=== PATIENT | male | born 1990 | race Caucasian/White ===

== ENCOUNTER → 2022-08-05 | Outpatient (CLI) | payer BC, SELFPAY ==
[2022-08-05 10:03] LABS: Absolute Lymphocyte Count 1.34 X10^3/uL (0.83-4.51); Absolute Neutrophil Count 3.8 X10^3/uL (2.0-7.7); Basophil# 0.03 X10^3/uL; Basophil% 0.5 % (0-1); Eosinophil# 0.27 X10^3/uL; Eosinophils% 4.6 % (0-5); Hematocrit 40.9 % (40-54); Hemoglobin 13.2 g/dL (13.0-16.5); Lymphocyte # 1.34 X10^3/ul (0.83-4.51); Lymphocyte % 22.8 % (19-41); Mean Corp Hgb Conc 32.3 g/dL (32-36); Mean Corpuscular Hgb 29.5 pg (27.0-32.0); Mean Corpuscular Volume 91.5 fL (80-94); Monocyte# 0.46 X10^3/uL; Monocyte% 7.8 % (0-10); NRBC Flagged by Analyzer 0 % (0-5); Neutrophil # 3.75 X10^3/uL (2.7-7.7); Platelet Count 264 K/mm3 (150-450); RBC Distribution Width CV 12.7 % (11.6-14.6); Red Blood Count 4.47 M/mm3 (4.6-6.2); White Blood Count 5.9 K/mm3 (4.4-11.0)
[2022-08-05 10:55] LABS: ALB/GLOB Ratio 0.9 RATIO (0.9-2.4); AST(SGOT) 24 U/L (15-37); Alanine Aminotransfer ALT/SGPT 42 U/L (16-61); Albumin, Serum 3.4 g/dL (3.2-5.0); Alkaline Phosphatase 98 U/L (45-117); Anion Gap 5 (5-15); BUN 12 mg/dL (7-18); BUN/Creat Ratio 14.4 RATIO (10-20); Chloride 108 mmol/L (98-107); Cholesterol 152 mg/dL (200); Creatinine, Serum 0.83 mg/dL (0.70-1.30); EST Glomerular Filtration Rate 113 mL/min (>60); Est Glom Filt Rate - Afr Amer 137 mL/min (>60); Globulin 3.8 g/dL (2.2-4.2); Glucose 91 mg/dL (74-106); High Density Lipoprotein 46 mg/dL; Potassium 4.1 mmol/L (3.5-5.1); Protein, Total 7.2 g/dL (6.4-8.2); Sodium Level 140 mmol/L (136-145); Thyroid Stim Hormone (TSH) 1.91 uIU/mL (0.358-3.74); Triglycerides 71 mg/dL; Very Low Density Lipoprotein 14 mg/dL (5-40)
== END | disposition home or self-care (01) ==
LOC: MFPLAB 08:10
PROVIDERS: PCP Family Medicine; Referring Provider Family Medicine; Visit Provider Family Medicine
DX: Z13.0 Encounter for screening for diseases of the blood and blood-forming organs and certain disorders involving the immune mechanism (principal); Z13.29 Encounter for screening for other suspected endocrine disorder; Z13.220 Encounter for screening for lipoid disorders
CPT/HCPCS: 36415; 80053; 80061; 83036; 84443; 85025

== ENCOUNTER 2023-01-12 15:35 | Emergency (ER) | payer BC, SELFPAY ==
[2023-01-12 15:35] VITALS: BP 158/111; PULSE 102; RESP 18; TEMP 36.8; O2SAT 99; BMI 54.8
--- NOTE | 2023-01-12 15:50 | ED.VIS.LOWEX ---
HPI History of Present Illness Chief Complaint: Lower Extremity Injury Detail of Chief Complaint: Left knee injury Informant: patient Narrative Narrative: Presents to the emergency department with injury to his left knee that occurred about 2 weeks ago. Patient states that he was walking down some steps in his real when his foot slipped and shifted his knee. He continued to walk and was able to get by. He is concerned because its been 2 weeks and he continues to have pain. Most the pain he points to his to the anterior proximal tibia area. At rest he really does not have much pain certain movements cause him pain. He denies chest pain or shortness of breath. Patient has not seen anybody for this. PFSH PFS Home Medications naproxen 500 mg tablet 500 mg PO BID #14 tabs 01/12/23 [Rx Last Taken Unknown] Allergy/AdvReac Type Severity Reaction Status Date / Time No Known Allergies Allergy Verified 01/12/23 15:40 Social History Smoking Status: Never smoker ROS ROS ED Review of Systems ROS Unobtainable: other Constitutional Constitutional ED: Reports lethargy; Denies chills, fever(s), sweats or weight loss Eyes Eyes: Denies blurry vision, change in vision or diplopia ENT ENT ED: Denies rhinorrhea or sore throat Cardiovascular Cardiovascular: Denies chest pain, orthopnea or racing heartbeat Respiratory/Chest Respiratory/Chest: Denies cough, dyspnea, dyspnea on exertion, orthopnea or sputum Gastrointestinal Gastrointestinal: Denies abdominal pain, diarrhea, nausea or vomiting Genitourinary Genitourinary ED: Denies dysuria, hematuria or urinary frequency Musculoskeletal Musculoskeletal: Reports other Details: Left knee pain ; Denies arthralgias, back pain, myalgias or neck pain Integumentary Denies abscess, Abrasions or rash Neurologic Neurologic: Denies headache(s) or weakness Psychiatric Psychiatric: Denies anxiety, depression or suicidal thoughts Endocrine Endocrinology: Denies polydipsia, polyphagia or polyuria Hematologic/Lymphatic Hematologic/Lymphatic: Denies easy bleeding, easy bruising or lymphadenopathy Allergic/Immunologic Allergic/Immunologic ED: Denies mouth swelling, tongue swelling or urticaria EXAM Physical Exam Const Vital Signs: 01/12/23 15:35 Temperature 98.2 F Temperature Source Temporal Pulse Rate 102 H Respiratory Rate 18 Blood Pressure 158/111 H Blood Pressure Mean 126 Pulse Ox 99 Oxygen Delivery Method Room Air Positive well nourished and well developed General Appearance ED: well developed and NAD HEENT Reports TM's clear and moist mucous membranes normocephalic and atraumatic; Negative for trauma or tenderness Tympanic Membrane ED: Yes TM's clear Eyes PERRL and EOMs intact bilaterally General Eye ED: Negative for pale conjunctiva or scleral icterus Neck no lymphadenopathy, supple and no JVD General: Negative for tenderness Chest Wall inspection of chest normal and palpation of chest normal Chest: Negative for tenderness Resp normal respiratory effort and clear to auscultation bilaterally Effort and Inspection: Negative for respiratory distress or pain with movement Auscultation: Negative for rhonchi, wheezes or diminished lung sounds Cardio regular rate, regular rhythm, S1 normal heart sound, S2 normal heart sound and no murmurs Peripheral Pulses: pulses 2+ throughout GI normal to inspection, nondistended, normoactive bowel sounds, soft to palpation, non-tender, non-distended and no masses Back/Spine no CVA tenderness and no thoracic nor lumbar tenderness Extremity normal to inspection Extremity Narrative: Left knee-no obvious effusion noted. Ligamentous exam very difficult given patient's large size and large body habitus however no obvious laxity noted with anterior or posterior drawer test. There is no laxity noted with varus or valgus stress. Is able to flex and extend the knee without difficulty. He is neurovascular intact distally. No varicosities noted. No ropes or cords palpated. Negative Homans' sign. General Extremety ED: Negative for edema General Extremity: Negative for edema Neuro oriented x3, CN's II-XII intact bilaterally, no sensory deficits noted and gait normal Sensorium / Orientation: awake, alert, oriented to person, oriented to place and oriented to time Motor Exam: strength 5/5 throughout and strength abnormal Psych mental status grossly normal Skin no rashes or lesions noted and no wounds MDM MDM MDM Narrative Medical decision making narrative: Radiology requested repeat lateral view which will be performed. Patient will then be discharged to home. Patient presents with left knee pain x2 weeks after injury. There is no evidence of ligamentous laxity on physical exam and x-rays unremarkable for fracture on my interpretation. Patient understands I cannot rule out ligamentous or meniscal injury and he will be referred to orthopedics for follow-up if symptoms persist and he understands he may need further imaging such as possibly MRI to evaluate further. We will give him an Stanley wrap as we do not have a knee immobilizer that will fit the patient. He does not want crutches. Radiography Diagnostic Testing: Clinical Impression(s) from Imaging Studies Knee X-Ray 01/12/23 16:00 IMPRESSION: Limited lateral view due to patient motion. Repeat image recommended (also, remove keys from pocket). Electronically Signed: Laurie Fields MD at 16:36 EST Reading Location ID and State: [id number] / Tel , Service support , 4 view x-rays of the left knee obtained interpreted by myself as no acute fractures or dislocations. I do not appreciate an obvious effusion. Official report from radiology will be pending. X-ray interpretation was performed by radiology and they noted there was motion artifact on the lateral view and with they would like to have it repeated and have the patient's keys removed from his pocket. Discharge Plan Triage Chief Complaint: Lower Extremity Injury ED Provider: Zulma Brandon Dx/Rx/DC Orders Clinical Impression: Left knee sprain Instructions: ED Knee Sprain Prescriptions: New naproxen 500 mg tablet 500 mg PO BID Qty: 14 0RF Primary Care Provider: Alma Martinez Referrals: Alma Martinez DO [Primary Care Provider] - Miah Guy MD [Med Staff - Active Staff] - 3-5 Days Disposition Disposition: Home, Self Care
--- NOTE | 2023-01-12 16:00 | RAD_ITS ---
INDICATION: injury EXAMINATION/TECHNIQUE: X-RAY - LEFT XR Knee Complete 4 Views or More 4 VIEWS COMPARISON: None. FINDINGS: Limited due to motion artifact on the lateral view. No acute fracture or dislocation. Joint effusion. Normal alignment. Soft tissues are unremarkable. No soft tissue gas. [place] projected over the anterolateral thigh. RAD/Knee 4 or More Views IMPRESSION: Limited lateral view due to patient motion. Repeat image recommended (also, remove keys from pocket). Electronically Signed: Laurie Fields MD at 16:36 EST Reading Location ID and State: [id number] / Tel , Service support ,
--- NOTE | 2023-01-12 16:42 | RAD_ITS ---
INDICATION: lateral view repeat EXAMINATION/TECHNIQUE: X-RAY - LEFT XR Knee 1 or 2 Views 1 VIEWS COMPARISON: None. FINDINGS: No acute fracture or dislocation. No destructive bone changes. Joint spaces are well-maintained. No joint effusion. Normal alignment. Soft tissues are unremarkable. No radiopaque foreign body or soft tissue gas. RAD/Knee 1 or 2 Views IMPRESSION: Negative lateral view of the knee. Electronically Signed: Laurie Fields MD at 17:37 EST Reading Location ID and State: [id number] / Tel , Service support ,
--- NOTE | 2023-01-12 16:45 | ED.RN ---
PER Ed SMITH RN OKAY TO DISCHARGE PT AFTER XRAY TAKEN PER DR. MCMAHON PRIOR TO RESULT.
[2023-01-12 16:51] VITALS: RESP 18
== END 2023-01-12 16:52 | disposition home or self-care (01) ==
PROVIDERS: Emergency Provider Emergency Medicine; PCP Family Medicine; Visit Provider Emergency Medicine
DX: S83.92XA Sprain of unspecified site of left knee, initial encounter (principal); X58.XXXA Exposure to other specified factors, initial encounter
CPT/HCPCS: 73560; 73564; 99282

== ENCOUNTER → 2023-09-20 | Outpatient (CLI) | payer BC, SELFPAY ==
[2023-09-20 17:47] LABS: Absolute Lymphocyte Count 1.93 X10^3/uL (0.83-4.51); Absolute Neutrophil Count 5.8 X10^3/uL (2.0-7.7); Basophil# 0.06 X10^3/uL; Basophil% 0.7 % (0-1); Eosinophil# 0.28 X10^3/uL; Eosinophils% 3.2 % (0-5); Hematocrit 42.4 % (40-54); Hemoglobin 13.5 g/dL (13.0-16.5); Lymphocyte # 1.93 X10^3/ul (0.83-4.51); Lymphocyte % 22.1 % (19-41); Mean Corp Hgb Conc 31.8 g/dL (32-36); Mean Corpuscular Hgb 28.8 pg (27.0-32.0); Mean Corpuscular Volume 90.6 fL (80-94); Mean Platelet Vol. 10.9 fl (6.2-12.0); Monocyte# 0.61 X10^3/uL; NRBC Flagged by Analyzer 0 % (0-5); Neutrophil # 5.83 X10^3/uL (2.7-7.7); Neutrophil % 66.8 % (47-70); Platelet Count 324 K/mm3 (150-450); RBC Distribution Width CV 13.2 % (11.6-14.6); RBC Distribution Width SD 43.2 fl (35.1-43.9); Red Blood Count 4.68 M/mm3 (4.6-6.2); White Blood Count 8.7 K/mm3 (4.4-11.0)
[2023-09-20 18:17] LABS: ALB/GLOB Ratio 0.9 RATIO (0.9-2.4); AST(SGOT) 29 U/L (15-37); Alanine Aminotransfer ALT/SGPT 58 U/L (16-61); Albumin, Serum 3.7 g/dL (3.2-5.0); Alkaline Phosphatase 96 U/L (45-117); Anion Gap 6 (5-15); BUN 16 mg/dL (7-18); BUN/Creat Ratio 17.7 RATIO (10-20); Calcium,Total 9.4 mg/dL (8.5-10.1); Chloride 102 mmol/L (98-107); Cholesterol 172 mg/dL (200); EST Glomerular Filtration Rate 102 mL/min (>60); Est Glom Filt Rate - Afr Amer 123 mL/min (>60); Globulin 4.3 g/dL (2.2-4.2); Glucose 119 mg/dL (74-106); High Density Lipoprotein 46 mg/dL; Potassium 3.4 mmol/L (3.5-5.1); Sodium Level 136 mmol/L (136-145); Triglycerides 161 mg/dL; Very Low Density Lipoprotein 32 mg/dL (5-40)
[2023-09-20 18:19] LABS: Hemoglobin A1c 4.9 % (3.8-5.6)
== END | disposition home or self-care (01) ==
LOC: MFPLAB 14:22
PROVIDERS: PCP Family Medicine; Visit Provider Family Medicine
DX: I10 Essential (primary) hypertension (principal); Z68.44 Body mass index [BMI] 60.0-69.9, adult
CPT/HCPCS: 36415; 80053; 80061; 83036; 85025

== ENCOUNTER → 2023-11-09 | Outpatient (CLI) | payer BC, SELFPAY ==
[2023-11-09 16:10] LABS: Anion Gap 8 (5-15); BUN 15 mg/dL (7-18); BUN/Creat Ratio 19.3 RATIO (10-20); Calcium,Total 9.1 mg/dL (8.5-10.1); Chloride 101 mmol/L (98-107); Creatinine, Serum 0.78 mg/dL (0.70-1.30); EST Glomerular Filtration Rate 121 mL/min (>60); Est Glom Filt Rate - Afr Amer 147 mL/min (>60); Glucose 78 mg/dL (74-106); Potassium 3.5 mmol/L (3.5-5.1); Sodium Level 138 mmol/L (136-145)
== END | disposition home or self-care (01) ==
LOC: MFPLAB 11:52
PROVIDERS: PCP Family Medicine; Visit Provider Family Medicine
DX: I10 Essential (primary) hypertension (principal)
CPT/HCPCS: 36415; 80048

== ENCOUNTER → 2025-09-05 | Outpatient (CLI) | payer BC, SELFPAY ==
--- OUTSIDE RECORDS SUMMARY | 2025-09-05 09:49 | XMS RPT_ITS | CCD ---
Author Organization [facility] Care Team Providers Care Edging Catcher Name Role Phone NO, PHYSICIAN Primary Care Unavailable ITZ DONIS Referring ITZ Sanchez Attending Alma Greenfield Primary Care Unavailable Alma Martinez Attending Unavailable Alma Martinez Attending Unavailable Alma Martinez Primary Care Unavailable Zulma Brandon Attending Unavailable Alma Martinez Primary Care Unavailable Medications Current Medications Medication Drug Class(es) Dates Sig (Normalized) Sig (Original) naproxen 500 mg oral tablet (1 source) Nonsteroidal Anti-inflammatory Drug Start: 01-12-2023 take 500 mg by mouth twice daily Naproxen Active 500 MG PO TWICE A DAY January 12, 2023 12:00am Problems Active Problems Problem Classification Problem Date Documented Da te Episodic/Chronic Essential hypertension (2 sources) Hypertensive disorder; Translations: [Essential (primary) hypertension] Onset: 11-15-2023 11-29-2013 Chronic Fracture of lower limb (1 source) Fracture of ankle; Translations: [Other fracture of right lower leg, initial encounter for closed fracture] 11-29-2013 Episodic Other nutritional; endocrine; and metabolic disorders (1 source) Morbid obesity; Translations: [Morbid (severe) obesity due to excess calories] 11-29-2013 Chronic Sprains and strains (1 source) Sprain of knee; Translations: [Sprain of unspecified site of left knee, initial encounter] 01-20-2023 Episodic Past or Other Problems Problem Classification Problem Date Documented Da te Episodic/Chronic Other injuries and conditions due to external causes (1 source) Unspecified injury of left lower leg, initial encounter; Translations: [Unspecified injury of left lower leg, initial encounter] Onset: 02-03-2023 Episodic Results Test Name Value Interpretation Reference Range Facility Basic Metabolic Profile (BMP )on 11-09-2023 BUN/CRE 19.3 RATIO Normal 10-[address] [facility] Comment on above: Order Comment: Order Date: 11/09/23 Order Info: 0667- - BMP Performed By: #### L 500.2500 #### [facility] [address] [place], [address] CA,Total 9.1 mg/dL Normal 8.5-10.[address] [facility] Comment on above: Order Comment: Order Date: 11/09/23 Order Info: 666-11 - BMP Performed By: #### L 500.2500 #### [facility] [address] [place], [address] Chloride [Moles/Vol] 101 mmol/L Normal 98-[address] [facility] Comment on above: Order Comment: Order Date: 11/09/23 Order Info: 06 - BMP Performed By: #### L 500.2500 #### [facility] [address] [place], [address] CO2 [Moles/Vol] 29.0 mmol/L Normal 21.0-32.[address] [facility] Comment on above: Order Comment: Order Date: 11/09/23 Order Info: 06 - BMP Performed By: #### L 500.2500 #### [facility] [address] [place], [address] Creatinine [Mass/Vol] 0.78 mg/dL Normal 0.70-1.30 [facility] Comment on above: Order Comment: Order Date: 11/09/23 Order Info: 0667- - BMP Result Comment: The validity of the calculated GFR GFRAA in patients over 70 years has not been determined. Clinical correlation is essential. Performed By: #### L 500.2500 #### [facility] [address] [place], [address] EST GFR - AA 147 mL/min Normal >[address] [facility] Comment on above: Order Comment: Order Date: 11/09/23 Order Info: 666-11 - BMP Result Comment: Afri can Tongan GFR Calc Performed By: #### L 500.2500 #### [facility] [address] [place], [address] GAP 8 Normal 5-[address] [facility] Comment on above: Order Comment: Order Date: 11/09/23 Order Info: 666-11 - BMP Performed By: #### L 500.2500 #### [facility] [address] [place], [address] GFR/1.73 sq M.predicted among non-blacks MDRD (S/P/Bld) [Vol rate/Area] 121 mL/min/{1.73_m2} Normal >[address] [facility] Comment on above: Order Comment: Order Date: 11/09/23 Order Info: 666-11 - BMP Result Comment: Non- GFR Calc Performed By: #### L 500.2500 #### [facility] [address] [place], [address] Glucose [Mass/Vol] 78 mg/dL Normal 74-106 [facility] Comment on above: Order Comment: Order Date: 11/09/23 Order Info: 666-11 - BMP Performed By: #### L 500.2500 #### [facility] [address] [place], [address] Potassium [Moles/Vol] 3.5 mmol/L Normal 3.5-5.1 [facility] Comment on above: Order Comment: Order Date: 11/09/23 Order Info: 666-11 - BMP Performed By: #### L 500.2500 #### [facility] [address] [place], [address] Sodium [Moles/Vol] 138 mmol/L Normal 136-145 [facility] Comment on above: Order Comment: Order Date: 11/09/23 Order Info: 666-11 - BMP Performed By: #### L 500.2500 #### [facility] [address] [place], [address] Urea nitrogen [Mass/Vol] 15 mg/dL Normal 7-[address] [facility] Comment on above: Order Comment: Order Date: 11/09/23 Order Info: 0667-1 - BMP Performed By: #### L 500.2500 #### [facility] [address] [place], [address] Basophil percentageOrdered B y: Alma Martinez on 11-09-2023 Chloride [Moles/Vol] 101 mmol/L 98-[address] [facility] Glucose [Mass/Vol] 78 mg/dL 74-106 [facility] Potassium [Moles/Vol] 3.5 mmol/L 3.5-5.1 [facility] Sodium [Moles/Vol] 138 mmol/L 136-145 [facility] - Chemistry and C hemistry - challengeOrdered By: Alma Martinez on 11-09-2023 CO2 [Moles/Vol] 29.0 mmol/L 21.0-32.[address] [facility] Urea nitrogen/Creatinine [Mass ratio] 19.3 mg/mg 10-[address] [facility] No Panel InformationOrdered By: Alma Martinez on 11-09-2023 Estimated GFR (MDRD) Amer 147 mL/min >[address] [facility] Comment on above: GFR Calc Estimated GFR (MDRD) Non-Af Amer 121 mL/min >[address] [facility] Comment on above: Non- GFR Calc Serum or plasma calcium jacky urement (mass/volume)Ordered By: Alma Martinez on 11-09-2023 Calcium [Mass/Vol] 9.1 mg/dL 8.5-10.1 [facility] Serum or plasma creatinine m easurement (mass/volume)Ordered By: Alma Martinez on 11-09-2023 Creatinine [Mass/Vol] 0.78 mg/dL 0.70-1.30 [facility] Comment on above: The validity of the calculated GFR & GFRAA in patients over 70 years has not been determined. Clinical correlation is essential. Serum or plasma urea nitroge n measurement (mass/volume)Ordered By: Alma Martinez on 11-09-2023 Urea nitrogen [Mass/Vol] 15 mg/dL 7-[address] [facility] Thin prep Papanicolaou smear with manual screeningOrdered By: Alma Martinez on 11-09-2023 Thin prep Papanicolaou smear with manual screening 8 5-[address] [facility] Absolute lymphocyte countOrd ered By: Alma Martinez on 09-20-2023 Lymphocytes Auto (Unsp spec) [#/Vol] 1.93 10*3/uL 0.83-4.[address] [facility] Basophil percentageOrdered B y: Alma Martinez on 09-20-2023 Basophils/100 WBC (Bld) 0.7 % 0-1 [facility] Bilirubin [Mass/Vol] 0.20 mg/dL 0.20-1.[address] [facility] Comment on above: For patients on eltr ombopag therapy, use of Dimension [place] TBIL is not recommended. Chloride [Moles/Vol] 102 mmol/L 98-[address] [facility] Cholesterol [Mass/Vol] 172 mg/dL <200 [facility] Comment on above: <200 mg/dL Desirable 200-240 mg/dL Borderline >240 mg/dL High Risk Eosinophils/100 WBC (Bld) 3.2 % 0-[address] [facility] Glucose [Mass/Vol] 119 mg/dL 74-106 [facility] Comment on above: Fasting Glucose resu lt from 100 to 125 mg/dL suggests IMPAIRED HOMEOSTASIS per A.D.A. criteria. Neutrophils (Bld) [#/Vol] 5.8 10*3/uL 2.0-7.[address] [facility] Neutrophils/100 WBC (Bld) 66.8 % 47-[address] [facility] Potassium [Moles/Vol] 3.4 mmol/L 3.5-5.1 [facility] Protein [Mass/Vol] 8.0 g/dL 6.4-8.2 [facility] Sodium [Moles/Vol] 136 mmol/L 136-145 [facility] Triglyceride [Mass/Vol] 161 mg/dL <199 [facility] Comment on above: The drugs N-Acetylcy steine and Metamizole may falsely depress this assay.Serum Triglycerides Reference Interval Normal <150 mg/dL Borderline high 150 - 199 mg/dL High 200 - 499 mg/dL Very High > or = 500 mg/dL WBC (Bld) [#/Vol] 8.7 10*3/uL 4.4-11.0 [facility] Blood erythrocytes count (nu mber/volume)Ordered By: Alma Martinez on 09-20-2023 RBC (Bld) [#/Vol] 4.68 10*6/uL 4.6-6.2 [facility] Blood hemoglobin measurement (mass/volume)Ordered By: Alma Martinez on 09-20-2023 Hemoglobin (Bld) [Mass/Vol] 13.5 g/dL 13.0-16.[address] [facility] Blood lymphocytes/100 leukoc ytesOrdered By: Alma Martinez on 09-20-2023 Lymphocytes/100 WBC (Bld) 22.1 % 19-[address] [facility] Blood monocytes/100 leukocyt esOrdered By: Alma Martinez on 09-20-2023 Monocytes/100 WBC (Bld) 7.0 % 0-10 [facility] Blood platelet mean volumeOr dered By: Alma Martinez on 09-20-2023 Platelet mean volume (Bld) [Entitic vol] 10.9 fL 6.2-12.[address] [facility] CBC W/Diff, Automatedon Absolute Lymph 1.93 X10 3/uL Normal 0.83-4.[address] [facility] Comment on above: Order Comment: Order Date: 09/20/23 Order Info: 0184-1 - CBCD Performed By: #### L 500.4050, L500.4100, L501.9985, L502.0250, L100.0100 #### [facility] [address] [place] [address], [address] Absolute Neut 5.8 X10 3/uL Normal 2.0-7.[address] [facility] Comment on above: Order Comment: Order Date: 09/20/23 Order Info: 0184-1 - CBCD Performed By: #### L 500.4050, L500.4100, L501.9985, L502.0250, L100.0100 #### [facility] [address] [place], [address] Basophils/100 WBC (Bld) 0.7 % Normal 0-1 [facility] Comment on above: Order Comment: Order Date: 09/20/23 Order Info: 0184-1 - CBCD Performed By: #### L 500.4050, L500.4100, L501.9985, L502.0250, L100.0100 #### [facility] [address] [place], [address] Eosinophils/100 WBC (Bld) 3.2 % Normal 0-[address] [facility] Comment on above: Order Comment: Order Date: 09/20/23 Order Info: 0184-1 - CBCD Performed By: #### L 500.4050, L500.4100, L501.9985, L502.0250, L100.0100 #### [facility] [address] [place], [address] Erythrocyte distribution width (RBC) [Ratio] 13.2 % Normal 11.6-14.[address] [facility] Comment on above: Order Comment: Order Date: 09/20/23 Order Info: 0184-1 - CBCD Performed By: #### L 500.4050, L500.4100, L501.9985, L502.0250, L100.0100 #### [facility] [address] [place], [address] Hematocrit (Bld) [Volume fraction] 42.4 % Normal 40-[address] [facility] Comment on above: Order Comment: Order Date: 09/20/23 Order Info: 0184-1 - CBCD Performed By: #### L 500.4050, L500.4100, L501.9985, L502.0250, L100.0100 #### [facility] [address] [place], [address] Hemoglobin (Bld) [Mass/Vol] 13.5 g/dL Normal 13.0-16.[address] [facility] Comment on above: Order Comment: Order Date: 09/20/23 Order Info: 0184-1 - CBCD Performed By: #### L 500.4050, L500.4100, L501.9985, L502.0250, L100.0100 #### [facility] [address] [place], [address] IG% 0.200 Normal 0.0-0.[address] [facility] Comment on above: Order Comment: Order Date: 09/20/23 Order Info: 0184-1 - CBCD Result Comment: IG% - Immature Granulocytes (promyelocytes, myelocytes and metamyelocytes) > 1% indicates that a LEFT SHIFT is Present. Performed By: #### L 500.4050, L500.4100, L501.9985, L502.0250, L100.0100 #### [facility] [address] [place], [address] Lymphocytes/100 WBC (Bld) 22.1 % Normal 19-[address] [facility] Comment on above: Order Comment: Order Date: 09/20/23 Order Info: 0184-1 - CBCD Performed By: #### L 500.4050, L500.4100, L501.9985, L502.0250, L100.0100 #### [facility] [address] [place], [address] MCH (RBC) [Entitic mass] 28.8 pg Normal 27.0-32.[address] [facility] Comment on above: Order Comment: Order Date: 09/20/23 Order Info: 0184-1 - CBCD Performed By: #### L 500.4050, L500.4100, L501.9985, L502.0250, L100.0100 #### [facility] [address] [place], [address] MCHC (RBC) [Mass/Vol] 31.8 g/dL Low 32-36 [facility] Comment on above: Order Comment: Order Date: 09/20/23 Order Info: 0184-1 - CBCD Performed By: #### L 500.4050, L500.4100, L501.9985, L502.0250, L100.0100 #### [facility] [address] [place], [address] MCV (RBC) [Entitic vol] 90.6 fL Normal 80-94 [facility] Comment on above: Order Comment: Order Date: 09/20/23 Order Info: 0184-1 - CBCD Performed By: #### L 500.4050, L500.4100, L501.9985, L502.0250, L100.0100 #### [facility] [address] [place], [address] Monocytes/100 WBC (Bld) 7.0 % Normal 0-10 [facility] Comment on above: Order Comment: Order Date: 09/20/23 Order Info: 0184-1 - CBCD Performed By: #### L 500.4050, L500.4100, L501.9985, L502.0250, L100.0100 #### [facility] [address] [place], [address] Neutrophils/100 WBC (Bld) 66.8 % Normal 47-[address] [facility] Comment on above: Order Comment: Order Date: 09/20/23 Order Info: 0184-1 - CBCD Performed By: #### L 500.4050, L500.4100, L501.9985, L502.0250, L100.0100 #### [facility] [address] [place], [address] Nucleated RBC (Bld) [#/Vol] 0 10*3/uL Normal 0-[address] [facility] Comment on above: Order Comment: Order Date: 09/20/23 Order Info: 0184-1 - CBCD Performed By: #### L 500.4050, L500.4100, L501.9985, L502.0250, L100.0100 #### [facility] [address] [place], [address] Platelet mean volume (Bld) [Entitic vol] 10.9 fL Normal 6.2-12.[address] [facility] Comment on above: Order Comment: Order Date: 09/20/23 Order Info: 0184-1 - CBCD Performed By: #### L 500.4050, L500.4100, L501.9985, L502.0250, L100.0100 #### [facility] [address] [place], [address] Platelets (Bld) [#/Vol] 324 10*3/uL Normal 150-[address] [facility] Comment on above: Order Comment: Order Date: 09/20/23 Order Info: 0184- - CBCD Performed By: #### L 500.4050, L500.4100, L501.9985, L502.0250, L100.0100 #### [facility] [address] [place], [address] RBC (Bld) [#/Vol] 4.68 10*6/uL Normal 4.6-6.2 [facility] Comment on above: Order Comment: Order Date: 09/20/23 Order Info: 0184- - CBCD Performed By: #### L 500.4050, L500.4100, L501.9985, L502.0250, L100.0100 #### [facility] [address] [place], [address] RDW SD 43.2 fl Normal 35.1-43.[address] [facility] Comment on above: Order Comment: Order Date: 09/20/23 Order Info: 0184-1 - CBCD Performed By: #### L 500.4050, L500.4100, L501.9985, L502.0250, L100.0100 #### [facility] [address] [place], [address] WBC (Bld) [#/Vol] 8.7 10*3/uL Normal 4.4-11.0 [facility] Comment on above: Order Comment: Order Date: 09/20/23 Order Info: 0184-1 - CBCD Performed By: #### L 500.4050, L500.4100, L501.9985, L502.0250, L100.0100 #### [facility] [address] [place], [address] Comprehensive Metabolic Prof ilon 09-20-2023 Albumin [Mass/Vol] 3.7 g/dL Normal 3.2-5.0 [facility] Comment on above: Order Comment: Order Date: 09/20/23 Order Info: [id number] - CMP Order Info: [id number] - LIPID Performed By: #### L 500.4050, L500.4100, L501.9985, L502.0250, L100.0100 #### [facility] [address] [place], [address] Albumin/Globulin [Mass ratio] 0.9 {ratio} Normal 0.9-2.[address] [facility] Comment on above: Order Comment: Order Date: 09/20/23 Order Info: [id number] - CMP Order Info: [id number] - LIPID Performed By: #### L 500.4050, L500.4100, L501.9985, L502.0250, L100.0100 #### [facility] [address] [place], [address] ALK P 96 U/L Normal 45-[address] [facility] Comment on above: Order Comment: Order Date: 09/20/23 Order Info: [id number] - CMP Order Info: [id number] - LIPID Performed By: #### L 500.4050, L500.4100, L501.9985, L502.0250, L100.0100 #### [facility] [address] [place], [address] ALT [Catalytic activity/Vol] 58 U/L Normal 16-[address] [facility] Comment on above: Order Comment: Order Date: 09/20/23 Order Info: [id number] - CMP Order Info: [id number] - LIPID Performed By: #### L 500.4050, L500.4100, L501.9985, L502.0250, L100.0100 #### [facility] [address] [place], [address] AST [Catalytic activity/Vol] 29 U/L Normal 15-[address] [facility] Comment on above: Order Comment: Order Date: 09/20/23 Order Info: [id number] - CMP Order Info: [id number] - LIPID Performed By: #### L 500.4050, L500.4100, L501.9985, L502.0250, L100.0100 #### [facility] [address] [place], [address] Bilirubin [Mass/Vol] 0.20 mg/dL Normal 0.20-1.[address] [facility] Comment on above: Order Comment: Order Date: 09/20/23 Order Info: [id number] - CMP Order Info: [id number] - LIPID Result Comment: For patients on eltrombopag therapy, use of Dimension [place] TBIL is not recommended. Performed By: #### L 500.4050, L500.4100, L501.9985, L502.0250, L100.0100 #### [facility] [address] [place], [address] BUN/CRE 17.7 RATIO Normal 10-[address] [facility] Comment on above: Order Comment: Order Date: 09/20/23 Order Info: [id number] - CMP Order Info: [id number] - LIPID Performed By: #### L 500.4050, L500.4100, L501.9985, L502.0250, L100.0100 #### [facility] [address] [place], [address] CA,Total 9.4 mg/dL Normal 8.5-10.[address] [facility] Comment on above: Order Comment: Order Date: 09/20/23 Order Info: [id number] - CMP Order Info: [id number] - LIPID Performed By: #### L 500.4050, L500.4100, L501.9985, L502.0250, L100.0100 #### [facility] [address] [place], [address] Chloride [Moles/Vol] 102 mmol/L Normal 98-[address] [facility] Comment on above: Order Comment: Order Date: 09/20/23 Order Info: [id number] - CMP Order Info: [id number] - LIPID Performed By: #### L 500.4050, L500.4100, L501.9985, L502.0250, L100.0100 #### [facility] [address] [place], [address] CO2 [Moles/Vol] 28.0 mmol/L Normal 21.0-32.[address] [facility] Comment on above: Order Comment: Order Date: 09/20/23 Order Info: [id number] - CMP Order Info: [id number] - LIPID Performed By: #### L 500.4050, L500.4100, L501.9985, L502.0250, L100.0100 #### [facility] [address] [place], [address] Creatinine [Mass/Vol] 0.90 mg/dL Normal 0.70-1.30 [facility] Comment on above: Order Comment: Order Date: 09/20/23 Order Info: [id number] - CMP Order Info: [id number] - LIPID Result Comment: The validity of the calculated GFR GFRAA in patients over 70 years has not been determined. Clinical correlation is essential. Performed By: #### L 500.4050, L500.4100, L501.9985, L502.0250, L100.0100 #### [facility] [address] [place], [address] EST GFR - AA 123 mL/min Normal >[address] [facility] Comment on above: Order Comment: Order Date: 09/20/23 Order Info: 0786- - CMP Order Info: [id number] - LIPID Result Comment: Afri can Tongan GFR Calc Performed By: #### L 500.4050, L500.4100, L501.9985, L502.0250, L100.0100 #### [facility] [address] [place], [address] GAP 6 Normal 5-[address] [facility] Comment on above: Order Comment: Order Date: 09/20/23 Order Info: 07 - CMP Order Info: [id number] - LIPID Performed By: #### L 500.4050, L500.4100, L501.9985, L502.0250, L100.0100 #### [facility] [address] [place], [address] GFR/1.73 sq M.predicted among non-blacks MDRD (S/P/Bld) [Vol rate/Area] 102 mL/min/{1.73_m2} Normal >[address] [facility] Comment on above: Order Comment: Order Date: 09/20/23 Order Info: 0786 - CMP Order Info: [id number] - LIPID Result Comment: Non- GFR Calc Performed By: #### L 500.4050, L500.4100, L501.9985, L502.0250, L100.0100 #### [facility] [address] [place], [address] Globulin (S) [Mass/Vol] 4.3 g/dL High 2.2-4.2 [facility] Comment on above: Order Comment: Order Date: 09/20/23 Order Info: 0786- - CMP Order Info: [id number] - LIPID Performed By: #### L 500.4050, L500.4100, L501.9985, L502.0250, L100.0100 #### [facility] [address] [place], [address] Glucose [Mass/Vol] 119 mg/dL High 74-106 [facility] Comment on above: Order Comment: Order Date: 09/20/23 Order Info: [id number] - CMP Order Info: [id number] - LIPID Result Comment: Fast ing Glucose result from 100 to 125 mg/dL suggests IMPAIRED HOMEOSTASIS per A.D.A. criteria. Performed By: #### L 500.4050, L500.4100, L501.9985, L502.0250, L100.0100 #### [facility] [address] [place], [address] Potassium [Moles/Vol] 3.4 mmol/L Low 3.5-5.1 [facility] Comment on above: Order Comment: Order Date: 09/20/23 Order Info: [id number] - CMP Order Info: [id number] - LIPID Performed By: #### L 500.4050, L500.4100, L501.9985, L502.0250, L100.0100 #### [facility] [address] [place], [address] Sodium [Moles/Vol] 136 mmol/L Normal 136-145 [facility] Comment on above: Order Comment: Order Date: 09/20/23 Order Info: [id number] - CMP Order Info: [id number] - LIPID Performed By: #### L 500.4050, L500.4100, L501.9985, L502.0250, L100.0100 #### [facility] [address] [place], [address] T PROT 8.0 g/dL Normal 6.4-8.[address] [facility] Comment on above: Order Comment: Order Date: 09/20/23 Order Info: [id number] - CMP Order Info: [id number] - LIPID Performed By: #### L 500.4050, L500.4100, L501.9985, L502.0250, L100.0100 #### [facility] [address] [place], [address] Urea nitrogen [Mass/Vol] 16 mg/dL Normal 7-[address] [facility] Comment on above: Order Comment: Order Date: 09/20/23 Order Info: [id number] - CMP Order Info: [id number] - LIPID Performed By: #### L 500.4050, L500.4100, L501.9985, L502.0250, L100.0100 #### [facility] [address] [place], [address] Determination of erythrocyte mean corpuscular volume (MCV)Ordered By: Alma Martinez on 09-20-2023 MCV (RBC) [Entitic vol] 90.6 fL 80-94 [facility] Hematocrit Auto (Bld) [Volum e fraction]Ordered By: Alma Martinez on 09-20-2023 Hematocrit (Bld) [Volume fraction] 42.4 % 40-[address] [facility] Hemoglobin A1con 09-20-2023 HbA1c (Bld) [Mass fraction] 4.9 % Normal 3.8-5.[address] [facility] Comment on above: Order Comment: Order Date: 09/20/23 Order Info: [id number] - A1C Result Comment: Norm al < 5.7 % Prediabetic 5.7 - 6.4 % Diabetic >or= 6.5 % Please note range changes. Performed By: #### L 500.4050, L500.4100, L501.9985, L502.0250, L100.0100 #### [facility] [address] [place], [address] Laboratory - Chemistry and C hemistry - challengeOrdered By: Alma Martinez on 09-20-2023 ALP [Catalytic activity/Vol] 96 U/L 45-[address] [facility] ALT [Catalytic activity/Vol] 58 U/L 16-[address] [facility] CO2 [Moles/Vol] 28.0 mmol/L 21.0-32.[address] [facility] Globulin (S) [Mass/Vol] 4.3 g/dL 2.2-4.2 [facility] Urea nitrogen/Creatinine [Mass ratio] 17.7 mg/mg 10-[address] [facility] Laboratory - Hematology and Cell countsOrdered By: Alma Martinez on 09-20-2023 Erythrocyte distribution width (RBC) [Entitic vol] 43.2 fL 35.1-43.[address] [facility] Erythrocyte distribution width (RBC) [Ratio] 13.2 % 11.6-14.[address] [facility] Immature granulocytes/100 WBC (Bld) 0.200 % 0.0-0.[address] [facility] Comment on above: IG% - Immature Granu locytes (promyelocytes, myelocytes and metamyelocytes) > 1% indicates that a LEFT SHIFT is Present. MCH (RBC) [Entitic mass] 28.8 pg 27.0-32.[address] [facility] Nucleated RBC/100 WBC (Bld) [Ratio] 0 % 0-[address] [facility] Lipid Profileon 09-20-2023 Cholesterol [Mass/Vol] 172 mg/dL Normal 200 [facility] Comment on above: Order Comment: Order Date: 09/20/23 Order Info: [id number] - CMP Order Info: [id number] - LIPID Result Comment: <200 mg/dL Desirable 200-240 mg/dL Borderline >240 mg/dL High Risk Performed By: #### L 500.4050, L500.4100, L501.9985, L502.0250, L100.0100 #### [facility] Laboratory [facility] [place], [address] Cholesterol in HDL [Mass/Vol] 46 mg/dL Normal [facility] Comment on above: Order Comment: Order Date: 09/20/23 Order Info: [id number] - CMP Order Info: [id number] - LIPID Result Comment: The drugs N-Acetylcysteine and Metamizole may falsely depress this assay. Reference Range HDL <40 mg/dL Low HDL Cholesterol HDL >or= 60 mg/dL High HDL Cholesterol Performed By: #### L 500.4050, L500.4100, L501.9985, L502.0250, L100.0100 #### [facility] [address] [place], [address] Cholesterol in LDL [Mass/Vol] 94 mg/dL Normal 0-[address] [facility] Comment on above: Order Comment: Order Date: 09/20/23 Order Info: [id number] - CMP Order Info: [id number] - LIPID Performed By: #### L 500.4050, L500.4100, L501.9985, L502.0250, L100.0100 #### [facility] [address] [place], [address] Cholesterol in VLDL [Mass/Vol] 32 mg/dL Normal 5-[address] [facility] Comment on above: Order Comment: Order Date: 09/20/23 Order Info: [id number] - CMP Order Info: [id number] - LIPID Performed By: #### L 500.4050, L500.4100, L501.9985, L502.0250, L100.0100 #### [facility] [address] [place], [address] Triglyceride [Mass/Vol] 161 mg/dL Normal [facility] Comment on above: Order Comment: Order Date: 09/20/23 Order Info: [id number] - CMP Order Info: [id number] - LIPID Result Comment: The drugs N-Acetylcysteine and Metamizole may falsely depress this assay. Serum Triglycerides Reference Interval Normal <150 mg/dL Borderline high 150 - 199 mg/dL High 200 - 499 mg/dL Very High > or = 500 mg/dL Performed By: #### L 500.4050, L500.4100, L501.9985, L502.0250, L100.0100 #### [facility] [address] [place], [address] MCHC Auto (RBC) [Mass/Vol]Or dered By: Alma Martinez on 09-20-2023 MCHC (RBC) [Mass/Vol] 31.8 g/dL 32-36 [facility] Microalb:Creat Ratio,Random URon 09-20-2023 MALB:CRE Normal <30 mg/g CRE [facility] Comment on above: Order Comment: Order Date: 09/20/23 Order Info: [id number] - MIACRE Result Comment: UTO Performed By: #### L 500.4050, L500.4100, L501.9985, L502.0250, L100.0100 #### [facility] [address] [place], [address] MICROALBUMIN,UR Normal NO RANGE EST. [facility] Comment on above: Order Comment: Order Date: 09/20/23 Order Info: [id number] - MIACRE Result Comment: UTO Performed By: #### L 500.4050, L500.4100, L501.9985, L502.0250, L100.0100 #### [facility] [address] [place], [address] UR CREAT Normal NO RANGE EST. [facility] Comment on above: Order Comment: Order Date: 09/20/23 Order Info: [id number] - MIACRE Result Comment: UTO Performed By: #### L 500.4050, L500.4100, L501.9985, L502.0250, L100.0100 #### [facility] [address] [place], [address] No Panel InformationOrdered By: Alma Martinez on 09-20-2023 Estimated GFR (MDRD) Amer 123 mL/min >[address] [facility] Comment on above: GFR Calc Estimated GFR (MDRD) Non-Af Amer 102 mL/min >[address] [facility] Comment on above: Non- GFR Calc Platelets bldOrdered By: Isabelle Martinez on 09-20-2023 Platelets (Bld) [#/Vol] 324 10*3/uL 150-[address] [facility] Serum or plasma albumin jacky urement (mass/volume)Ordered By: Alma Martinez on 09-20-2023 Albumin [Mass/Vol] 3.7 g/dL 3.2-5.0 [facility] Serum or plasma albumin/glob ulin mass ratioOrdered By: Alma Martinez on 09-20-2023 Albumin/Globulin [Mass ratio] 0.9 {ratio} 0.9-2.[address] [facility] Serum or plasma calcium jacky urement (mass/volume)Ordered By: Alma Martinez on 09-20-2023 Calcium [Mass/Vol] 9.4 mg/dL 8.5-10.1 [facility] Serum or plasma cholesterol in HDL measurement (mass/volume)Ordered By: Alma Martinez on 09-20-2023 Cholesterol in HDL [Mass/Vol] 46 mg/dL >[address] [facility] Comment on above: The drugs N-Acetylcy steine and Metamizole may falsely depress this assay. Reference Range HDL <40 mg/dL Low HDL Cholesterol HDL >or= 60 mg/dL High HDL Cholesterol Serum or plasma cholesterol in VLDL measurement (mass/volume)Ordered By: Alma Martinez on 09-20-2023 Cholesterol in VLDL [Mass/Vol] 32 mg/dL 5-[address] [facility] Serum or plasma creatinine m easurement (mass/volume)Ordered By: Alma Martinez on 09-20-2023 Creatinine [Mass/Vol] 0.90 mg/dL 0.70-1.30 [facility] Comment on above: The validity of the calculated GFR & GFRAA in patients over 70 years has not been determined. Clinical correlation is essential. Serum or plasma low density lipoprotein (LDL) cholesterol measurement (mass/volume)Ordered By: Alma Martinez on 09-20-2023 Cholesterol in LDL [Mass/Vol] 94 mg/dL 0-[address] [facility] Serum or plasma urea nitroge n measurement (mass/volume)Ordered By: Alma Martinez on 09-20-2023 Urea nitrogen [Mass/Vol] 16 mg/dL 7-[address] [facility] Thin prep Papanicolaou smear with manual screeningOrdered By: Alma Martinez 09-20-2023 Thin prep Papanicolaou smear with manual screening 29 U/L 15-[address] [facility] Thin prep Papanicolaou smear with manual screening 6 5-[address] [facility] Whole blood hemoglobin A1c/t otal hemoglobin ratio (mass fraction)Ordered By: Alma Martinez on 09-20-2023 HbA1c (Bld) [Mass fraction] 4.9 % 3.8-5.[address] [facility] Comment on above: Normal < 5.7 % Predi abetic 5.7 - 6.4 % Diabetic >or= 6.5 % Please note range changes. Emergency Department Summary on 01-12-2023 Emergency Department Summary [facility] Medical Records Department [address] [place] [address] Emergency Department Summary 01/12/23 MR#: [id number] Acct: [id number] Name: BHASKAR RECIO Rep #: [id number] : 1990 32 From: Zulma Brandon DO PCP: Alma Martinez DO Status:DEP ER Location: ED HPI History of Present Illness Chief Complaint: Lower Extremity Injury Detail of Chief Complaint: Left knee injury Informant: patient Narrative Narrative: Presents to the emergency department with injury to his left knee that occurred about 2 weeks ago. Patient states that he was walking down some steps in his real when his foot slipped and shifted his knee. He continued to walk and was able to get by. He is concerned because its been 2 weeks and he continues to have pain. Most the pain he points to his to the anterior proximal tibia area. At rest he really does not have much pain certain movements cause him pain. He denies chest pain or shortness of breath. Patient has not seen anybody for this. [facility] Home Medications naproxen 500 mg tablet 500 mg PO BID #14 tabs 01/12/23 [Rx Last Taken Unknown] Allergy/AdvReac Type Severity Reaction Status Date / Time No Known Allergies Allergy Verified 01/12/23 15:40 Social History Smoking Status: Never smoker ROS ROS ED Review of Systems ROS Unobtainable: other Constitutional Constitutional ED: Reports lethargy; Denies chills, fever(s), sweats or weight loss Eyes Eyes: Denies blurry vision, change in vision or diplopia ENT ENT ED: Denies rhinorrhea or sore throat Cardiovascular Cardiovascular: Denies chest pain, orthopnea or racing heartbeat Respiratory/Chest Respiratory/Chest: Denies cough, dyspnea, dyspnea on exertion, orthopnea or sputum Gastrointestinal Gastrointestinal: Denies abdominal pain, diarrhea, nausea or vomiting Genitourinary Genitourinary ED: Denies dysuria, hematuria or urinary frequency Musculoskeletal Musculoskeletal: Reports other Details: Left knee pain ; Denies arthralgias, back pain, myalgias or neck pain Integumentary Denies abscess, Abrasions or rash Neurologic Neurologic: Denies headache(s) or weakness Psychiatric Psychiatric: Denies anxiety, depression or suicidal thoughts Endocrine Endocrinology: Denies polydipsia, polyphagia or polyuria Hematologic/Lymphati c Hematologic/Lymphati c: Denies easy bleeding, easy bruising or lymphadenopathy Allergic/Immunologic Allergic/Immunologic ED: Denies mouth swelling, tongue swelling or urticaria EXAM Physical Exam Const Vital Signs: 01/12/23 15:35 Temperature 98.2 F Temperature Source Temporal Pulse Rate 102 H Respiratory Rate 18 Blood Pressure 158/111 H Blood Pressure Mean 126 Pulse Ox 99 Oxygen Delivery Method Room Air Positive well nourished and well developed General Appearance ED: well developed and NAD HEENT Reports TM's clear and moist mucous membranes normocephalic and atraumatic; Negative for trauma or tenderness Tympanic Membrane ED: Yes TM's clear Eyes PERRL and EOMs intact bilaterally General Eye ED: Negative for pale conjunctiva or scleral icterus Neck no lymphadenopathy, supple and no JVD General: Negative for tenderness Chest Wall inspection of chest normal and palpation of chest normal Chest: Negative for tenderness Resp normal respiratory effort and clear to auscultation bilaterally Effort and Inspection: Negative for respiratory distress or pain with movement Auscultation: Negative for rhonchi, wheezes or diminished lung sounds Cardio regular rate, regular rhythm, S1 normal heart sound, S2 normal heart sound and no murmurs Peripheral Pulses: pulses 2+ throughout GI normal to inspection, nondistended, normoactive bowel sounds, soft to palpation, non-tender, non- distended and no masses Back/Spine no CVA tenderness and no thoracic nor lumbar tenderness Extremity normal to inspection Extremity Narrative: Left knee-no obvious effusion noted. Ligamentous exam very difficult given patient's large size and large body habitus however no obvious laxity noted with anterior or posterior drawer test. There is no laxity noted with varus or valgus stress. Is able to flex and extend the knee without difficulty. He is neurovascular intact distally. No varicosities noted. No ropes or cords palpated. Negative Homans' sign. General Extremety ED: Negative for edema General Extremity: Negative for edema Neuro oriented x3, CN's II-XII intact bilaterally, no sensory deficits noted and gait normal Sensorium / Orientation: awake, alert, oriented to person, oriented to place and oriented to time Motor Exam: strength 5/5 throughout and strength abnormal Psych mental status grossly normal Skin no rashes or lesions noted and no wounds MDM MDM MDM Narrative Medical decision making narrative (more content not included)... Normal [facility] Knee 1 or 2 Viewson 01-12-20 Knee 1 or 2 Views [facility] [address] [place] [address] Knee 1 or 2 Views MR#: [id number] Acct: [id number] Name: BHASKAR RECIO Rep #: [id number] : 1990 M 32 From: Laurie soria MD PCP: Alma Martinez DO Status: DEP ER Study: Knee 1 or 2 Views Date of Exam: 01/12/23 Exam# [id number] Ordering Dr: Zluma Brandon DO INDICATION: lateral view repeat EXAMINATION/TECHNIQU E: X-RAY - LEFT XR Knee 1 or 2 Views 1 VIEWS COMPARISON: None. ____ FINDINGS: No acute fracture or dislocation. No destructive bone changes. Joint spaces are well-maintained. No joint effusion. Normal alignment. Soft tissues are unremarkable. No radiopaque foreign body or soft tissue gas. RAD/Knee 1 or 2 Views IMPRESSION: Negative lateral view of the knee. Electronically Signed: Laurie Fields MD at 17:37 EST Reading Location ID and State: [id number] / Tel , Service support , CC: Dr. 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 Knee 4 or More Viewson 01-12 Knee 4 or More Views [facility] [address] [place] [address] Knee 4 or More Views MR#: [id number] Acct: [id number] Name: BHASKAR RECIO Rep #: [id number] : 1990 M 32 From: Laurie soria MD PCP: Alma Martinez DO Status: REG ER Study: Knee 4 or More Views Date of Exam: 01/12/23 Exam# [id number] Ordering Dr: Zulma Brandon DO INDICATION: injury EXAMINATION/TECHNIQU E: X-RAY - LEFT XR Knee Complete 4 Views or More 4 VIEWS COMPARISON: None. ____ FINDINGS: Limited due to motion artifact on the lateral view. No acute fracture or dislocation. Joint effusion. Normal alignment. Soft tissues are unremarkable. No soft tissue gas. [place] projected over the anterolateral thigh. RAD/Knee 4 or More Views IMPRESSION: Limited lateral view due to patient motion. Repeat image recommended (also, remove keys from pocket). Electronically Signed: Laurie Fields MD at 16:36 EST Reading Location ID and State: [id number] / Tel , Service support , CC: Dr. 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 STRESS TEST ONLY, EXERCISEon 06-08-2021 STRESS TEST ONLY, EXERCISE Patient Info Name: BHASKAR RECIO Age: 30 years : 1990 Gender: Male Ht: 193 cm Wt: 204 kg BSA: 3.41 m2 HR: 87 bpm BP: 151 / 74 mmHg Heart Rhythm: Sinus Rhythm Exam Date: 06/08/2021 7:44 AM Patient Status: Outpatient Exam Type: STRESS TEST ONLY, EXERCISE Study Info Indications - Chest pain Attending Physician: Feli Tse Referring Physician: ITZ DONIS ; [id number] Stress Staff: RN Roopa Goldberg Primary Nurse: Roopa Goldberg RN Supervising Stress Physician: Feli Tse MD BMI: 54.78 kg/m2 Secondary Nurse: Laurie Romero RN Summary 1. Poor exercise tolerance with adequate hr response, negative ekg changes. History/Risk Factors Obesity: Yes Family History: Coronary Artery Disease Protocol: Bib Nir Stress ECG Details Stage: PRETEST SUPINE Duration (min): 2 min : 18 sec Jha: --- Speed (mph): 0.0 Grade (%): 0 HR (bpm): 102 SBP (mmHg): 151 DBP (mmHg): 74 METS: 1.0 Stage: EXERCISE STAGE 1 Duration (min): 3 min : 0 sec Jha: --- Speed (mph): 1.7 Grade (%): 10 HR (bpm): 164 SBP (mmHg): 212 DBP (mmHg): 53 METS: 4.6 Stage: EXERCISE STAGE 2 Duration (min): 0 min : 55 sec Jha: --- Speed (mph): 2.5 Grade (%): 12 HR (bpm): 176 SBP (mmHg): 212 DBP (mmHg): 53 METS: 5.6 Stage: RECOVERY Duration (min): 9 min : 30 sec Jha: --- Speed (mph): 0.0 Grade (%): 0 HR (bpm): 107 SBP (mmHg): 153 DBP (mmHg): 79 METS: 1.0 Rest HR: 102 bpm Peak HR: 176 bpm Rest Sys BP: 151 mmHg Peak Sys BP: 212 mmHg Max Pred HR: 189 bpm % Max Pred HR: 93 % Target HR: 161 bpm Max RPP: 37,312 bpm*mmHg Target HR Summary: Patient's target heart rate was achieved BP Response: Patient exhibited a hypertensive response with stress Termination Reason: Target heart rate achieved, Leg fatigue, Fatigue, Maximal effort/unable to continue Cardiac Symptoms: Chest discomfort Total Time: 3 min : 54 sec Rest Dukes BP: 74 mmHg Peak Dukes BP: 53 mmHg Total METS: 5.6 Resting ECG Normal sinus rhythm. Arrhythmias Occasional PACs. Stress Summary Poor exercise tolerance with adequate hr response, negative ekg changes. Report Signatures Finalized by Nir Sena MD on 06/08/2021 11:03 AM Normal [facility] Comment on above: Order Comment: PT/FA X, SCHEDULE AFTER MAY 20, 2021, PATIENT WILL HAVE INSURANCE THEN Encounters Encounter Date Encounter Type Care Provider Facility Start: 11-09-2023 End: 11-09-2023 ambulatory Alma Fernandez Juan [facility] Work Phone: Start: 11-09-2023 End: 11-09-2023 Patient encounter procedure [facility] Start: 09-20-2023 End: 09-20-2023 Patient encounter procedure [facility] Start: 09-20-2023 End: 09-20-2023 ambulatory Alma Martinez Facility:[facility] Start: 01-12-2023 End: 01-12-2023 Emergency department patient visit Zulma Brandon Facility:[facility] Start: 06-08-2021 End: 06-09-2021 ambulatory PHYSICIAN NO [facility] Immunizations Immunization Date Immunization Notes Care Provider Patricia marion 08-25-2021 influenza, injectabl e, quadrivalent, preservative free [facility] Payers Date Payer Category Payer Self-pay 2021 Unknown [id number] 1990 Unknown [id number] Unknown [id number] Unknown [id number] Unknown [id number] Social History Date Type Detail Facility [facility]: [facility] Start: 08-25-2021 [facility] Start: 08-25-2021 None [facility] Start: 08-25-2021 [facility] Start: 08-25-2021 Non-smoker [facility] Start: 1990 Sex Assigned At Male [facility] Evaluation note Note Date & Type Note Facility Evaluation note No assessment information availa ble [facility] Work Phone: Summary Purpose Family History No Family History Records FoundNo Family History Records Found Advance Directives No Advanced Directives Records Found Advance Directive Response Recorded Date/ Time Living Will No January 12 023 3:40pm Power of Photographic Press Screwmaker No January 12, 2023 3:40pm Additional Source Comments (unrecognized sect ion and content) No Status Records FoundNo Status Records Found INFORMATION SOURCE (unrecogn ized section and content) DATE CREATED AUTHOR 07/04/2021 [facility] DATE CREATED AUTHOR AUTHOR'S ORGANIZ ATION 11/17/2023 [facility] Care Teams (unrecognized sec tion and content) Team Status: Active Member Role Status Dates Out of Town Doctor Family Provider Active Alma Martinez DO Primary Care Provider Active Team Status: Inactive Member Role Status Dates Alma Martinez DO Primary Care Provider, Attending Provider Active Goals (unrecognized section and content) Goals may be documented in a n alternate section FOR RECORDS PERTAINING TO PATIENTS WHO ARE OR HAVE BEEN ENROLLED IN A CHEMICAL DEPENDENCY/SUBSTANCEABUSE PROGRAM, SOME INFORMATION MAY BE OMITTED. This clinical summary was aggregated from multiple sources. Caution should be exercised in using it in the provision of clinical care. This summary normalizes information from multiple sources, and as a consequence, information in this document may materially change the coding, format and clinical context of patient data. In addition, data may be omitted in some cases. CLINICAL DECISIONS SHOULD BE BASED ON THE PRIMARY CLINICAL RECORDS. [employer] [facility]. provides no warranty or guarantee of the accuracy or completeness of information in this document.
[2025-09-05 12:36] LABS: Hematocrit 40.2 % (40-54); Hemoglobin 13.5 g/dL (13.0-16.5); Mean Corp Hgb Conc 33.6 g/dL (32-36); Mean Corpuscular Volume 89.1 fL (80-94); Mean Platelet Vol. 10.8 fl (6.2-12.0); Platelet Count 276 K/mm3 (150-450); RBC Distribution Width CV 12.8 % (11.6-14.6); RBC Distribution Width SD 41.7 fl (35.1-43.9); Red Blood Count 4.51 M/mm3 (4.6-6.2); White Blood Count 6.3 K/mm3 (4.4-11.0)
[2025-09-05 13:39] LABS: AST(SGOT) 27 U/L (<=37); Alanine Aminotransfer ALT/SGPT 36 U/L (<=46); Albumin, Serum 4.1 g/dL (3.5-5.0); Alkaline Phosphatase 96 U/L (40-129); Anion Gap 9 (5-15); BUN 15 mg/dL (4-19); BUN/Creat Ratio 21.4 RATIO (10-20); Calcium,Total 9.7 mg/dL (7.6-11.0); Carbon Dioxide 28.5 mmol/L (21.0-32.0); Chloride 100 mmol/L (98-108); Cholesterol 172 mg/dL (<=200); Globulin 3.4 g/dL (2.2-4.2); Glucose 89 mg/dL (70-99); Low Density Lipoprotein Calc. 107 mg/dL; Potassium 3.7 mmol/L (3.3-5.1); Triglycerides 96 mg/dL; Troponin T High Sensitivity 7 ng/L (<=22); Very Low Density Lipoprotein 19 mg/dL (5-40); Vitamin D,25 Hydroxy 12.9 ng/mL (30-100); cholesterol:hdl ratio screen 3.60
== END | disposition home or self-care (01) ==
LOC: MFPLAB 09:26
PROVIDERS: PCP Family Medicine; Referring Provider Family Medicine; Visit Provider Family Medicine
DX: Z13.1 Encounter for screening for diabetes mellitus (principal); R07.9 Chest pain, unspecified; Z13.220 Encounter for screening for lipoid disorders
CPT/HCPCS: 36415; 80053; 80061; 82306; 83036; 84484; 85027